=== PATIENT | female | born 1970 | race Two or more races ===

== ENCOUNTER 2025-06-07 13:41 | Emergency (ER) | payer MEDICAID, SELFPAY ==
[2025-06-07 13:44] VITALS: BMI 31.2
[2025-06-07 13:51] VITALS: BP 153/88; PULSE 70; RESP 18; TEMP 36.9; O2SAT 95
--- NOTE | 2025-06-07 14:03 | XR_ITS ---
Examination: Tibia-Fibula, left , 2 views Technique: Tibia-fibula AP lateral 2 views Date and time of exam: June 07, 2025, 1410 hrs. Indications: Lower leg pain beginning 2 months ago with no trauma Findings: No fracture or dislocation. No cortical bone destruction. No foreign body. Impression: Osseous structures appear intact
--- NOTE | 2025-06-07 14:03 | PD.EDLOWEX ---
Lower Extremity Injury RME/HPI General Chief Complaint: Ankle/Foot Injury Stated Complaint: L) FOOT PAIN X 2 MOS; WORSE LAST NIGHT Time Seen by Provider: 06/07/25 13:46 Source: patient Arrival date/time: 06/07/25 13:41 54-year-old female with no known medical history presents to the emergency room with a chief complaint of left foot pain x 2 months. Mode of arrival: ambulatory Limitations: no limitations Related Data Previous Rx's ?Medication ?Instructions ?Recorded cyclobenzaprine 10 mg tablet 10 mg PO Q8H #20 tabs 01/23/18 ibuprofen 800 mg tablet 800 mg PO TID PRN pain #20 tabs 01/23/18 ibuprofen 800 mg tablet 800 mg PO TID PRN pain #30 tabs 01/22/23 ibuprofen 800 mg tablet 800 mg PO TID PRN pain #30 tabs 09/18/23 gabapentin 100 mg capsule 100 mg PO QDAY #10 caps 06/07/25 Allergies Allergy/AdvReac Type Severity Reaction Status Date / Time No Known Allergies Allergy Verified 06/07/25 13:47 Review of Systems Review of Systems Systems Reviewed: All systems reviewed, normal except as documented Constitutional Constitutional: Reports system reviewed and no additional complaints, except as documented, Denies fatigue, Denies fever(s), Denies headache(s) and Denies weakness Eyes Eyes: Reports system reviewed and no additional complaints, except as documented, Denies blurry vision and Denies change in vision ENT Ears, Nose, Mouth, and Throat: Reports system reviewed and no additional complaints, except as documented, Denies otalgia, Denies headache(s), Denies nasal congestion, Denies throat swelling and Denies vertigo Cardiovascular Cardiovascular: Reports system reviewed and no additional complaints, except as documented, Denies chest pain, Denies dyspnea and Denies dyspnea on exertion Respiratory Respiratory: Reports system reviewed and no additional complaints, except as documented, Denies chest congestion, Denies cough, Denies dyspnea, Denies dyspnea on exertion and Denies wheezing Gastrointestinal Gastrointestinal: Reports system reviewed and no additional complaints, except as documented, Denies abdominal pain, Denies cramping, Denies nausea and Denies vomiting Genitourinary Genitourinary: Reports system reviewed and no additional complaints, except as documented Musculoskeletal Musculoskeletal: Reports system reviewed and no additional complaints, except as documented and Denies back pain Integumentary/Breasts Skin/Breast: Reports system reviewed and no additional complaints, except as documented and Denies wounds Neurologic Neurologic: Reports system reviewed and no additional complaints, except as documented, Denies confusion, Denies headache(s), Denies lack of coordination, Denies vertigo and Denies weakness Psychiatric Psychiatric: Reports system reviewed and no additional complaints, except as documented, Denies anxiety, Denies confusion, Denies depression, Denies paranoia, Denies suicidal ideation and Denies tactile hallucinations Endocrine Endocrine: Reports system reviewed and no additional complaints, except as documented and Denies fatigue Hematologic/Lymphatic Hematologic/Lymphatic: Reports system reviewed and no additional complaints, except as documented and Denies lymphadenopathy Allergic/Immunologic Allergic/Immunologic: Reports system reviewed and no additional complaints, except as documented, Denies throat swelling, Denies urticaria and Denies wheezing ED Exam General Limitations: Present no limitations General appearance: Present alert and in no apparent distress Head Head exam: Present atraumatic Eye Eye exam: Present normal appearance, PERRL and EOMI ENT ENT exam: Present normal exam, normal oropharynx and mucous membranes moist Neck Neck exam: Present normal inspection, full ROM and trachea midline Chest Chest inspection: Present normal inspection and symmetric chest wall rise Respiratory Respiratory exam: Present normal lung sounds bilaterally Cardiovascular Cardiovascular exam: Present regular rate, normal rhythm and normal heart sounds Abdominal Exam Abdominal exam: Present soft and normal bowel sounds Extremities Exam Extremities exam: Present normal inspection and full ROM Expanded Lower Extremity Exam Hip/Pelvis exam: Present normal inspection Upper leg exam: Present normal inspection Knee exam: Present normal inspection Lower leg exam: Present full ROM and tenderness; Absent swelling, deformity, crepitus, erythema, Homans' sign or Achilles tendon intact Gait: observed and limited by pain Back Exam Back exam: Present normal inspection and full ROM Neurological Exam Neurological exam: Present alert, oriented X3 and CN II-XII intact Psychiatric Psychiatric exam: Present normal affect and normal mood Skin Skin exam: Present warm, dry, intact and normal color Course Quality Measures none Orders Category Date Time Status XR tibia fibula LT 2V Stat Exams 06/07/25 14:03 Completed Ketorolac Inj [Toradol Inj] Med 06/07/25 14:04 Discontinued 30 mg IM X1 ONE Vital Signs Vital signs: Vital Signs Temperature 98.5 F 06/07/25 13:51 Pulse Rate 70 07/20/25 13:51 Respiratory Rate 18 06/07/25 13:51 Blood Pressure 153/88 H 06/07/25 13:51 Pulse Oximetry (%) 95 06/07/25 13:51 Oxygen Delivery Method Room Air 06/07/25 13:51 Extremity Injury, Lower MDM Narrative MDM Narrative:: 54-year-old female with no known medical history presents to the emergency room with a chief complaint of left foot pain x 2 months. Patient is hemodynamically stable and in no apparent distress Physical examination shows tenderness and pain to the patient's left foot. The pain is localized to the left side of the knee. The findings are consistent with tendinitis. There is no erythema there is no swelling there is a negative Homans' sign. Patient states she recently had an ultrasound of the foot completed and was negative for DVT. X-rays were done today here in the emergency room which were also negative for any acute fracture or dislocation. Patient was discharged and educated to follow-up with primary care provider in the next 24 to 48 hours and return to the emergency room for any evidence of worsening signs or symptoms Patient data External records reviewed:: [facility] previous records Clinical information provided by:: patient Social determinants that could affect healthcare access:: none Patient has the following chronic illnesses:: No chronic illness How is presenting disease/condition affected by chronic disease/condition?: no chronic disease Evaluation data The following diagnostics were reviewed and interpreted by me:: lab results and radiology exam(s) Lab and/or radiology exams considered but not ordered:: Labs and radiology exams considered in order Interpretation Summary: Tib-fib [id number]: No fracture or dislocation. No cortical bone destruction. No foreign body. Impression: Osseous structures appear intact Medications / Prescriptions Medications or Prescriptions considered but not ordered:: Medication given Medication administrations:: Medication Administration History Discontinued Medications Ketorolac Tromethamine (Ketorolac Inj 60 Mg/2 Ml Vial) 30 mg IM X1 ONE Stop: 06/07/25 14:05 Last Admin: 06/07/25 14:19 Dose: 30 mg Documented By: VAZQUEZ Medication given Consultations Consultation(s) initiated? (list below): No Diagnosis Extremity Injury, Lower Differential Diagnosis: other (Acute leg pain/DVT/tib-fib fracture) Most likely diagnosis given after review of the tests above:: Tendinitis Admission Indicated Admission indicated?: not indicated Admission Request Was there a request for admission?: No Disposition Plan Disposition Plan: Discharge Discharge Attestation Discharge Attestation: The patient and all family members were given an opportunity to ask questions and understood the discharge instructions. Discharge instructions specifically effects, indications for sooner follow up or return to the emergency department, and the expected course of current diagnosis. Patient condition: Stable Discharge Plan Plan Patient Disposition: HOME (Self Care) Discharge Disposition comment: Stable Prescriptions/Referrals Prescriptions/Med Rec: New gabapentin 100 mg capsule 100 mg PO QDAY Qty: 10 0RF No Action cyclobenzaprine 10 mg tablet 10 mg PO Q8H Qty: 20 0RF ibuprofen 800 mg tablet 800 mg PO TID PRN (Reason: pain) Qty: 20 0RF ibuprofen 800 mg tablet 800 mg PO TID PRN (Reason: pain) Qty: 30 0RF ibuprofen 800 mg tablet 800 mg PO TID PRN (Reason: pain) Qty: 30 0RF Referrals: Marychuy Gilbert PA-C [Primary Care Provider] - In 1 week Problem List Clinical Impression: Acute pain of left lower extremity Patient/Caregiver Discharge Instructions Education Materials: ED Myalgias Additional Instructions: Por favor, consulte con silva m?dico de cabecera en las pr?ximas 24 a 48 horas. Se le realiz? sarah radiograf?a de pierna y result? negativa para cualquier hallazgo maddie. Tambi?n se le realiz? sarah ecograf?a que result? negativa para TVP. Por favor, consulte con silva m?dico de cabecera para el manejo adicional de zack dolor de pierna. Si observa cualquier signo de empeoramiento de los signos o s?ntomas, acuda a urgencias de inmediato. Print Language: [place] Stand Alone Forms: Lawanda Award Info., Patient Portal Info Letter PA/DIGNA Supervising Physician FAROOQ/DIGNA Supervising Physician: Dr. Robison
[2025-06-07] MEDS: KETOROLAC INJ 60 MG/2 ML VIAL 30 MG IM (14:19)
== END 2025-06-07 15:26 | disposition home or self-care (01) ==
PROVIDERS: Emergency Provider Emergency Medicine; PCP Physician Assistant
DX: M79.672 Pain in left foot (principal)
CPT/HCPCS: 73590; 96372; 99283; J1885

== ENCOUNTER 2025-08-24 14:50 | Outpatient (RCR) | payer MEDICAID, SELFPAY ==
--- NOTE | 2025-08-24 15:14 | PT.OIERPT ---
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 The pain was bad enough to go to the ER in May. Increased pain with stairs, prolonged walking and HH chores. She is working at a [employer] standing and walking all day which increases pain. 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 There appears to be a Friend's cyst on the Xray. Pt not likely going to benefit from skilled therapy if she has a Friend's cyst and has poor rehab potential. PT recommends further diagnostic imaging of L knee such as MRI. Short Term and Long-Term Goals Eval and D/C Treatment Plan Eval and D/C Certification Dates: 08/24/25 Procedure Charges OP PT Eval Mod Complex 30 minutes: Yes
== END 2025-09-18 23:59 | disposition home or self-care (01) ==
LOC: CPTX 14:50
PROVIDERS: PCP Physician Assistant; Referring Provider Physician Assistant; Visit Provider Physician Assistant
DX: M25.562 Pain in left knee (principal); M79.662 Pain in left lower leg; I10 Essential (primary) hypertension
CPT/HCPCS: 97162